=== PATIENT | female | born 2000 | race Caucasian/White ===

== ENCOUNTER 2022-07-21 11:27 | Emergency (ER) | payer OTHER ==
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
[2022-07-21 14:37] VITALS: BP 119/80; PULSE 76; RESP 18; TEMP 98.1
== END 2022-07-21 14:28 | disposition home or self-care (01) ==
LOC: EC 11:27
DX: R51.9 Headache, unspecified (principal); F17.290 Nicotine dependence, other tobacco product, uncomplicated; Y04.8XXA Assault by other bodily force, initial encounter; Y92.89 Other specified places as the place of occurrence of the external cause
CPT/HCPCS: 70450; 72125; 99284